=== PATIENT | male | born 1990 | race Caucasian/White ===

== ENCOUNTER 2023-01-25 14:52 | Emergency (ER) | payer SELFPAY ==
[2023-01-25] MEDS ORDERED: Zofran 4 MG/2 ML VIAL IV ONE (15:07)
[2023-01-25 15:11] VITALS: TEMP 97; O2SAT 99
--- NOTE | 2023-01-25 15:12 | ERPHSYRPT ---
- History of Present Illness Time Seen by Provider: 01/25/23 15:00 Historian: patient Exam Limitations: no limitations Patient Subjective Stated Complaint: Pt reports he was working outside with soil when he became short of breath and started having epigastric pain with nausea. Denies being exposed to any chemicals. Denies any medical problems. States he did use marijuana today approx 3 hours ago. Triage Nursing Assessment: Pt alert and oriented x3. No apparent respiratory distress. Ambulated to ED cot without difficulty. Skin w/p/d. Abdomen soft/flat. Timing/Duration: today Activities at Onset: none Quality: dullness Abdominal Pain Onset Location: epigastric Pain Radiation: no radiation Severity of Pain-Max: moderate Severity of Pain-Current: mild Modifying Factors: Improves With: palpation Associated Symptoms: nausea, shortness of breath Previous symptoms: no prior history Allergies/Adverse Reactions: morphine Adverse Reaction (Verified 01/25/23 14:54) Hives Penicillins Adverse Reaction (Verified 01/25/23 14:54) Hives Home Medications: Buprenorphine HCl/Naloxone HCl [Suboxone 8 mg-2 mg Sl Film] 0.5 tab PO DAILY 01/25/23 [History] Hx Tetanus, Diphtheria Vaccination/Date Given: Yes Hx Influenza Vaccination/Date Given: Yes Travel Risk - International Travel Have you traveled outside of the country in past 3 weeks: No - Coronavirus Screening Are you exhibiting any of the following symptoms?: No Close contact with a COVID-19 positive Pt in past 14-21 Days: No - Vaccine Status Have you recieved a Covid-19 vaccination: Yes Duct Maker: Unknown - Vaccination Dates Dates if Unknown: ? - Review of Systems Constitutional: No Symptoms, No Fever, No Chills Eyes: No Symptoms Ears, Nose, & Throat: No Symptoms Respiratory: No Symptoms, No Cough, No Dyspnea Cardiac: No Symptoms, No Chest Pain, No Edema, No Syncope Abdominal/Gastrointestinal: No Symptoms, No Abdominal Pain, No Nausea, No Vomiting, No Diarrhea Genitourinary Symptoms: No Symptoms, No Dysuria Musculoskeletal: No Symptoms, No Back Pain, No Neck Pain Skin: No Symptoms, No Rash Neurological: No Symptoms, No Dizziness, No Focal Weakness, No Sensory Changes Psychological: No Symptoms Endocrine: No Symptoms Hematologic/Lymphatic: No Symptoms Immunological/Allergic: No Symptoms All Other Systems: Reviewed and Negative - Past Medical History Pertinent Past Medical History: No - Past Surgical History Past Surgical History: Yes Gastrointestinal: Appendectomy - Social History Smoking Status: Current every day smoker Exposure to second hand smoke: Yes Drug Use: marijuana Patient Lives Alone: No - Nursing Vital Signs Nursing Vital Signs: Initial Vital Signs Temperature 97 F 01/25/23 14:54 Pulse Rate 108 H 01/25/23 14:54 Respiratory Rate 20 01/25/23 14:54 Blood Pressure 117/97 01/25/23 14:54 O2 Sat by Pulse Oximetry 99 01/25/23 14:54 Pain Scale Pain Intensity 7 - Physical Exam General Appearance: no apparent distress, alert Eye Exam: PERRL/EOMI, eyes nml inspection Ears, Nose, Throat Exam: normal ENT inspection, pharynx normal, moist mucous membranes Neck Exam: normal inspection, non-tender, supple, full range of motion Respiratory Exam: normal breath sounds, lungs clear, airway intact, No respiratory distress Cardiovascular Exam: regular rate/rhythm, normal heart sounds Gastrointestinal/Abdomen Exam: soft, other (Epigastric tenderness to palpation. Overlying soft tissue intact. No signs of trauma), No tenderness, No mass Back Exam: normal inspection, normal range of motion, No CVA tenderness, No vertebral tenderness Extremity Exam: normal inspection, normal range of motion, pelvis stable Neurologic Exam: alert, oriented x 3, cooperative, normal mood/affect, nml cerebellar function, sensation nml, No motor deficits Skin Exam: normal color, warm, dry SpO2 Interpretation: normal SpO2: 99 O2 Delivery: Room Air - Course Nursing assessment & vital signs reviewed: Yes EKG Interpreted by Me: RATE (33), Sinus Rhythm, NORMAL AXIS, Right Bundle Branch Block - CT Exams Abdomen/Pelvis CT Interpretation: Tele-radiologist Report (Thoracolumbar degenerative changes. Schmorl node) Ordered Tests: Active Orders 24 hr Category Date Time Status AMA [Release AMA] OM.NOW Care 01/25/23 17:26 Ordered EKG-ER Only STAT Care 01/25/23 15:07 Active IV Insertion STAT Care 01/25/23 15:07 Active ABDOMEN AND PELVIS W/0 CONTRAS [CT] Stat Exams 01/25/23 15:08 Completed CBC W DIFF Stat Lab 01/25/23 15:20 Completed CMP Stat Lab 01/25/23 15:20 Completed D-DIMER QUANTITATIVE Stat Lab 01/25/23 15:20 Completed ETHYL ALCOHOL Stat Lab 01/25/23 15:20 Completed LIPASE Stat Lab 01/25/23 15:20 Completed Lactic Acid Stat Lab 01/25/23 15:20 Completed TROPONIN Q4H Lab 01/25/23 15:20 Completed TROPONIN Q4H Lab 01/25/23 19:15 Ordered TROPONIN Q4H Lab 01/25/23 23:15 Ordered UA W/RFX UR CULTURE Stat Lab 01/25/23 15:08 Received Urine Triage Profile Stat Lab 01/25/23 15:08 Received Medication Summary Generic Name Dose Route Start Last Admin Trade Name Freq PRN Reason Stop Dose Admin Sodium Chloride 1,000 mls @ 999 mls/hr 01/25/23 17:11 01/25/23 17:21 Sodium Chloride 0.9% 1000 Ml IV 01/25/23 18:11 999 mls/hr .Q1H1M STA Administration Discontinued Medications Generic Name Dose Route Start Last Admin Trade Name Freq PRN Reason Stop Dose Admin Sodium Chloride Confirm 01/25/23 17:19 Sodium Chloride 0.9% 1000 Ml Administered 01/25/23 17:20 Dose 1,000 mls @ ud .ROUTE .STK-MED ONE Ondansetron HCl 4 mg 01/25/23 15:07 01/25/23 15:26 Ondansetron Hcl 4 Mg/2 Ml Vial IV 01/25/23 15:08 4 mg STAT ONE Administration Ondansetron HCl Confirm 01/25/23 15:25 Ondansetron Hcl 4 Mg/2 Ml Vial Administered 01/25/23 15:26 Dose 4 mg .ROUTE .STK-MED ONE Lab/Rad Data: Laboratory Result Diagrams 01/25/23 15:20 01/25/23 15:20 Laboratory Results 01/25/23 01/25/23 01/25/23 Range/Units 15:20 15:20 15:20 WBC (4.0-10.5) x10^3/uL RBC (4.1-5.6) x10^6/uL Hgb (12.5-18.0) g/dL Hct (42-50) % MCV (78-100) fL MCH (26-32) pg MCHC (32-36) g/dL RDW (11.5-14.0) % Plt Count (150-450) x10^3/uL MPV (7.5-11.0) fL Gran % (36.0-66.0) % Immature Gran % (Auto) (0.00-0.4) % Nucleat RBC Rel Count (0.00-0.1) % Eos # (Auto) (0-0.5) x10^3/uL Immature Gran # (Auto) (0.00-0.03) x10^3u/L Absolute Lymphs (auto) (1.0-4.6) x10^3/uL Absolute Monos (auto) (0.0-1.3) x10^3/uL Absolute Nucleated RBC (0.00-0.01) x10^3u/L Lymphocytes % (24.0-44.0) % Monocytes % (0.0-12.0) % Eosinophils % (0.00-5.0) % Basophils % (0.0-0.4) % Absolute Granulocytes (1.4-6.9) x10^3/uL Basophils # (0-0.4) x10^3/uL D-Dimer 0.26 (0.0-0.50) mg/L Sodium (137-145) mmol/L Potassium (3.5-5.1) mmol/L Chloride (98-107) mmol/L Carbon Dioxide (22-30) mmol/L Anion Gap (5-15) MEQ/L BUN (9-20) mg/dL Creatinine (0.66-1.25) mg/dL Estimated GFR ML/MIN Glucose (74-106) mg/dL Lactic Acid (0.4-2.0) Calcium (8.4-10.2) mg/dL Total Bilirubin (0.2-1.3) mg/dL AST (17-59) U/L ALT (0-50) U/L Alkaline Phosphatase (38-126) U/L Troponin I < 0.012 (0.000-0.034) ng/mL Serum Total Protein (6.3-8.2) g/dL Albumin (3.5-5.0) g/dL Lipase (23-300) U/L Ethyl Alcohol < 10 (0-10) mg/dL 01/25/23 01/25/23 01/25/23 Range/Units 15:20 15:20 15:20 WBC 9.5 (4.0-10.5) x10^3/uL RBC 5.40 (4.1-5.6) x10^6/uL Hgb 16.3 (12.5-18.0) g/dL Hct 46.3 (42-50) % MCV 85.7 (78-100) fL MCH 30.2 (26-32) pg MCHC 35.2 (32-36) g/dL RDW 11.7 (11.5-14.0) % Plt Count 257 (150-450) x10^3/uL MPV 10.1 (7.5-11.0) fL Gran % 83.1 H (36.0-66.0) % Immature Gran % (Auto) 0.4 (0.00-0.4) % Nucleat RBC Rel Count 0.0 (0.00-0.1) % Eos # (Auto) 0.03 (0-0.5) x10^3/uL Immature Gran # (Auto) 0.04 H (0.00-0.03) x10^3u/L Absolute Lymphs (auto) 0.96 L (1.0-4.6) x10^3/uL Absolute Monos (auto) 0.53 (0.0-1.3) x10^3/uL Absolute Nucleated RBC 0.00 (0.00-0.01) x10^3u/L Lymphocytes % 10.2 L (24.0-44.0) % Monocytes % 5.6 (0.0-12.0) % Eosinophils % 0.3 (0.00-5.0) % Basophils % 0.4 (0.0-0.4) % Absolute Granulocytes 7.85 H (1.4-6.9) x10^3/uL Basophils # 0.04 (0-0.4) x10^3/uL D-Dimer (0.0-0.50) mg/L Sodium 141 (137-145) mmol/L Potassium 4.1 (3.5-5.1) mmol/L Chloride 105 (98-107) mmol/L Carbon Dioxide 23 (22-30) mmol/L Anion Gap 16.7 H (5-15) MEQ/L BUN 19 (9-20) mg/dL Creatinine 1.46 H (0.66-1.25) mg/dL Estimated GFR 59.1 ML/MIN Glucose 86 (74-106) mg/dL Lactic Acid 1.4 (0.4-2.0) Calcium 10.0 (8.4-10.2) mg/dL Total Bilirubin 0.80 (0.2-1.3) mg/dL AST 42 (17-59) U/L ALT 26 (0-50) U/L Alkaline Phosphatase 112 (38-126) U/L Troponin I (0.000-0.034) ng/mL Serum Total Protein 8.3 H (6.3-8.2) g/dL Albumin 5.0 (3.5-5.0) g/dL Lipase 726 H (23-300) U/L Ethyl Alcohol (0-10) mg/dL - Progress Progress: improved Progress Note: Patient is a 32-year-old male presents to our ED for evaluation of epigastric pain. Mild shortness of breath. Symptoms started just prior to arrival. EKG shows normal sinus rhythm. CT abdomen pelvis essentially nonremarkable. No acute findings. CBC within normal limits. CMP reveals a creatinine 1.46. This is likely prerenal/dehydration. Patient states he has been eating and drinking less due to his discomfort. He has had less of an appetite as well. D-dimer negative. Lipase elevated 726. This corresponds his epigastric pain. Patient likely experiencing an acute episode of pancreatitis. Troponin negative. Urinalysis results pending. Patient received a liter normal saline and Zofran. Went ahead and give patient pain medication however he declined. No active pain at this time. Toradol declined We advised admission due to elevated lipase/symptomatic pancreatitis. Patient declined. Patient states he feels better and is requesting discharge. Patient is of sound mind. Patient is appropriate to make informed and independent medical decisions. Patient understands that leaving AGAINST MEDICAL ADVICE can result in delayed diagnosis, increased risk of morbidity, mortality, short and long-term disability including . In spite of these risks, patient has decided to leave AGAINST MEDICAL ADVICE. Patient understands that he may return to our ED at any point if he reconsiders. Patient agrees to f ollow-up with his primary care doctor within 48 hours for reevaluation. Patient voices no other complaints or concerns at this time. We will release patient AGAINST MEDICAL ADVICE per their request. Complexity of problems addressed is moderate acute complicated Critical care time Complex of data reviewed and analyzed is moderate. Test ordered test reviewed. Results analyzed and clinically correlated with history and physical examination. In light of patient's physical exam and elevated lipase patient likely experiencing acute pancreatitis. Risk of complication and or risk of morbidity/mortality of patient management is high. Patient requires hospitalization. However patient declined and will be leaving AGAINST MEDICAL ADVICE. Patient discharged home AGAINST MEDICAL ADVICE. Vital stable at this time. Time spent to discharge patient AMA is approximately 15 minutes. No social determinants of health present to impede follow-up. Portions of this note were created with voice recognition technology. There may be grammatical, spelling, punctuation or sound alike errors 01/25/23 17:30 01/25/23 17:32 Counseled pt/family regarding: lab results, diagnosis, need for follow-up, rad results - Departure Departure Disposition: AMA Clinical Impression: Elevated serum creatinine, Elevated lipase, Pancreatitis, Dehydration Condition: Stable Critical Care Time: No Referrals: DOCTOR,NO FAMILY [Primary Care Provider] - Follow up/PCP as directed LATASHA HUTCHINSON MD [ACTIVE STAFF] - Follow up/PCP as directed Additional Instructions: Discharge/Care Plan FABRICE PEDERSEN was seen on 01/25/23 in the Emergency Room. The patient was counseled regarding Diagnosis,Lab results, Imaging studies, need for follow up and when to return to the Emergency Room. Prescriptions given: Discharge Note I have spoken with the patient and/or caregivers. I have explained the patient's condition, diagnosis and treatment plan based on the information available to me at this time. I have answered the patient's and/or caregiver's questions and addressed any concerns. The patient and/or caregivers have as good understanding of the patient's diagnosis, condition and treatment plan as can be expected at this point. The vital signs have been stable. The patient's condition is stable and appropriate for discharge from the emergency department. The patient will pursue further outpatient evaluation with the primary care physician or other designated or consulting physician as outlined in the discharge instructions. The patient and/or caregivers are agreeable to this plan of care and follow-up instructions have been explained in detail. The patient and/or caregivers have received these instruction. The patient/and or caregivers are aware that any significant change in condition or worsening of symptoms should prompt an immediate return to this or the closest emergency department or call 911.
[2023-01-25 15:25] LABS: Absolute Neutrophil Ct (ANC) 7.85 x10^3/uL (1.4-6.9); BASOPHIL % 0.4 % (0.0-0.4); Basophil (Absolute #) 0.04 x10^3/uL (0-0.4); Eosinophil % 0.3 % (0.00-5.0); Eosinophil (Absolute #) 0.03 x10^3/uL (0-0.5); Hematocrit 46.3 % (42-50); Hemoglobin 16.3 g/dL (12.5-18.0); IMMATURE GRAN # 0.04 x10^3u/L (0.00-0.03); IMMATURE GRAN % 0.4 % (0.00-0.4); Lymphocyte (Absolute #) 0.96 x10^3/uL (1.0-4.6); Lymphocytes % 10.2 % (24.0-44.0); Mean Cell Volume 85.7 fL (78-100); Mean Corpuscular Hemoglobin 30.2 pg (26-32); Mean Corpuscular Hgb Concent. 35.2 g/dL (32-36); Mean Platelet Volume 10.1 fL (7.5-11.0); Monocyte (Absolute #) 0.53 x10^3/uL (0.0-1.3); Monocytes % 5.6 % (0.0-12.0); Neutrophil % 83.1 % (36.0-66.0); Platelet Count 257 x10^3/uL (150-450); Red Cell Distribution Width 11.7 % (11.5-14.0); White Blood Count 9.5 x10^3/uL (4.0-10.5)
[2023-01-25] MEDS ORDERED: Zofran 4 MG/2 ML VIAL ONE (15:25)
[2023-01-25 15:43] LABS: ANION GAP 16.7 MEQ/L (5-15); BILIRUBIN,TOTAL 0.8 mg/dL (0.2-1.3); Creatinine 1 1.46 mg/dL (0.66-1.25); EST GLOMERULAR FILTRATION RATE 59.1 ML/MIN; Potassium 4.1 mmol/L (3.5-5.1); Total Protein 8.3 g/dL (6.3-8.2)
--- NOTE | 2023-01-25 16:32 | XRAY ---
Indication: Pain. Multiple contiguous axial images obtained through abdomen and pelvis without contrast. Comparison: None Lung bases clear. Heart not enlarged. Radiopacities scattered throughout the small bowel loops either ingested medication/bismuth or barium. Stomach and bowel loops appear nonobstructed. Previous appendectomy. No free fluid/air. Remaining liver, gallbladder, pancreas, spleen, adrenal glands, kidneys, ureters, bladder, and aorta are unremarkable for noncontrast exam. Osseous structures intact with minimal multilevel thoracolumbar degenerative changes and tiny Schmorl nodes. No ventral or inguinal hernias. Impression: CT abdomen/pelvis without contrast exam is negative. Incidental multilevel thoracolumbar degenerative spondylosis and tiny Schmorl nodes.
[2023-01-25 16:51] VITALS: BP 116/64
[2023-01-25] MEDS ORDERED: Sodium Chloride 0.9% 1000 ML 1,000 ML IV STA (17:11)
[2023-01-25] MEDS ORDERED: Sodium Chloride 0.9% 1000 ML 1,000 ML ONE (17:19)
[2023-01-25 17:30] VITALS: PULSE 97; RESP 20
[2023-01-25 17:40] LABS: Appearance Clear (Clear); Bacteria None Seen /HPF (None Seen); Bilirubin Negative (Negative); Blood Negative (Negative); Epithelial Cells Rare /HPF (None Seen); Glucose, Urine Negative (Negative); Ketones 40 (Negative); Leukocyte Esterase Negative (Negative); Nitrite Negative (Negative); Ph 6.5 (4.6-8.0); Protein,Urine Dip 30 (Negative); RBC 0-2 /HPF (0-5); Specific Gravity >=1.030 (1.005-1.030); WBC 0-2 /HPF (0-5)
[2023-01-25 17:55] LABS: Barbiturate,Urine NEGATIVE (NEGATIVE); Benzodiazepine,Urine NEGATIVE (NEGATIVE); Cocaine,Urine NEGATIVE (NEGATIVE); Methadone,Urine NEGATIVE (NEGATIVE); Opiate,Urine NEGATIVE (NEGATIVE); PCP,Urine NEGATIVE (NEGATIVE); THC,Urine POSITIVE (NEGATIVE)
[2023-01-25 18:01] LABS: ADD URINE CULTURE? NO (NO); Hyaline Casts 20-50 /LPF (0-2)
[2023-01-25 18:24] LABS: Amphetamine,Urine POSITIVE (NEGATIVE)
== END 2023-01-25 17:57 | disposition left against medical advice (07) ==
LOC: ED 14:52
DX: K85.90 Acute pancreatitis without necrosis or infection, unspecified (principal); R79.89 Other specified abnormal findings of blood chemistry; R74.8 Abnormal levels of other serum enzymes; E86.0 Dehydration; R06.02 Shortness of breath; R10.13 Epigastric pain; R11.0 Nausea; Z79.891 Long term (current) use of opiate analgesic; Z72.0 Tobacco use
CPT/HCPCS: 36000; 36415; 74176; 80053; 80307; 81001; 82077; 83605; 83690; 84484; 85025; 85379; 93005; 96374; 99284; J2405